=== PATIENT | female | born 2000 | race Caucasian/White ===

== ENCOUNTER → 2022-09-07 10:27 | Outpatient (CLI) | payer OTHER, SELFPAY ==
--- NOTE | 2022-09-06 10:33 | W.CARDEVENT ---
Date of service: 09/06/22 Time of Service: 10:33 Cardiac Event Recorder Referring Provider:: Marion Valedz Indications:: Syncope Cardiac Event Note: This is a 30-day secured entrance monitor, reportedly ordered for syncope. Rhythm throughout was sinus with an average heart rate of 75. Minimum was 53, maximum 144 There were no significant supraventricular or ventricular dysrhythmias There was no atrial fibrillation, no high-grade AV block, no pauses greater than 3 seconds Patient symptoms of lightheadedness corresponded to sinus rhythm rate approximately 100
--- NOTE | 2022-09-07 | DI.US_ITS ---
APPROVED REPORT EXAM: Comprehensive 2D, Doppler, and color-flow Echocardiogram Patient Location: Out-Patient Licensed Insurance Sales Agent: Tarsha Driscoll RDCS (AE) Indications: Syncopal episodes and dizziness Other Information Study Quality: Adequate. Technically limited study due to scan done with patient fully clothed. Conclusion Normal left ventricular wall thickness and chamber size. Estimated ejection fraction is 60%. Wall m otion is normal Normal right ventricular size and systolic function Both atria are normal in size There is no structural or hemodynamically significant valvular disease Estimated right ventricular systolic pressure is normal at 19 mmHg Wall motion Left Ventricle The left ventricle is normal size. The left ventricular systolic function is normal. The left ventric ular ejection fraction is within the normal range. There is normal left ventricular wall thickness. T here is normal LV segmental wall motion. There is no ventricular septal defect visualized. LVEF is 60 %. Right Ventricle The right ventricle is normal size. The right ventricular systolic function is normal. The RVSP is 18 .8mmHg. Atria The left atrium size is normal. The right atrium size is normal. The interatrial septum is intact wit h no evidence for an atrial septal defect. Aortic Valve The aortic valve is normal in structure. Aortic valve is trileaflet. There is no aortic valvular sten osis. No aortic regurgitation is present. Mitral Valve The mitral valve is normal in structure. No evidence of mitral valve stenosis. Trace mitral regurgita tion. Tricuspid Valve The tricuspid valve is normal in structure. There is no tricuspid valve stenosis. Trace tricuspid reg urgitation. Pulmonic Valve Pulmonic valve is not well visualized. There is no pulmonic valvular stenosis. There is no pulmonic v alvular regurgitation. Great Vessels The aortic root is normal in size. Ascending aorta is not well visualized. Aortic arch is normal in c aliber. IVC is normal in size and collapses >50% with inspiration. Pericardium There is no pericardial effusion. 2D Dimensions IVSD d PLAX 0.69 cm F: 0.6-1.0 LV Vol A2C d MOD 95.7 mL LVPW d PLAX 0.66 cm F: 0.6 - 1.0 LV Vol A4C d MOD 71.9 mL LVID d PLAX 4.22 cm F: 3.8 - 5.2 LA vol/ BSA A2C s A-L 18.7 mL/m2 LVDs 2.65 cm F: 2.2 - 3.5 LA vol/ BSA A4C s A-L 11.3 mL/m2 Ao Root d 2.19 cm F: 2.7 - 3.3 LA Vol/ BSA Biplane s A-L 15.0 mL/m2 RA Area A4C 8.13 cm2 LA Area A4C s MOD 9.05 cm2 RA Vol/ BSA A4C s A-L 9.5 mL/m2 LA Area A2C s MOD 11.98 cm2 LV EF Teichholz 66.4 % LV EF A4C MOD 60.2 % LVEF (Brooks's) 59.02 % F: 54 - 74 LV EF A2C MOD 60.1 % LV Volume 68.93 mL F: 46 - 106 LV EF Biplane MOD 59.0 % LV Volume Index 43.08 mL/m2 F: 29 - 61 SV 50.10 mL LV Vol Biplane MOD 84.9 mL SV Index 31.27 mL/m2 FS 36.25 % M-Mode TAPSE 3.02 cm (M/F) >1.7 LV Diastology MV E' medial 0.145 (>0.07 m/s) E/A Ratio 1.7 LV E/e MED 6.35 (<14) MV E Vmax 0.93 (0.4-1.3 m/s) MV E' lateral 0.197 (>0.1 m/s) MV A Vmax 0.55 (0.4-1.3 m/s) LV E/e LAT 4.70 (<14) MV E/A Ratio 1.67 MV E/E' medial 6.38 MV E/E' lateral 4.71 Aortic Valve LVOT Area 2.65 cm2 AoV Area Vmax 2.36 cm2 LVOT Vmax 1.15 m/s AoV Area/ BSA (Vmax) 1.47 cm2/m2 LVOT Mean Matty. 0.74 m/s CORRIE Mean Matty. 2.19 cm2 LVOT Peak Grad 5.3 mmHg CORRIE Mean Matty. Index 1.37 cm2/m2 LVOT Mean Grad 2.6 mmHg LVOT VTI 0.257 m LVOT Diam s 1.80 cm AoV Vmax 1.29 m/s Velocity Ratio 0.89 AoV Mean Matty. 0.90 m/s AoV Peak Grad 6.7 mmHg LVOT SV 68.12 mL AoV Mean Grad 3.6 mmHg AoV VTI 0.277 m AoV Area VTI 2.46 cm2 AoV Area/ BSA (VTI) 1.54 cm/m2 Mitral Valve MV DT 191 (160-240 msec) MV PHT 55 msec MV Area PHT 3.98 cm2 Pulmonary Valve PV Vmax 1.01 (0.5-1.5 m/s) RVOT Peak Gr. 2.11 mmHg PV Peak Grad 4.1 mmHg RVOT Mean Gr. 1.00 mmHg PV Mean Grad 2.1 mmHg RVOT VTI 0.159 m PV VTI 0.220 m RVOT Vmax 0.73 m/s Tricuspid Valve TR Peak Grad 15.7 mmHg TR Vmax 1.98 m/s RA Pressure 3.00 mmHg RVSP (TR) 18.8 mmHg
== END ==
PROVIDERS: Visit Provider Nurse Practitioner Family
DX: R55 Syncope and collapse (principal)
CPT/HCPCS: 93272; 93306

== ENCOUNTER → 2023-04-09 12:50 | Outpatient (BNVA) | payer OTHER, SELFPAY | PROVIDERS: PCP Nurse Practitioner Family; Referring Provider Nurse Practitioner Family; Visit Provider Psychiatry & Neurology Neurology | DX: R40.4 Transient alteration of awareness (principal); Z86.16 Personal history of COVID-19; Z82.49 Family history of ischemic heart disease and other diseases of the circulatory system; G47.00 Insomnia, unspecified | CPT/HCPCS: 99205 ==

== ENCOUNTER 2023-04-15 03:22 | Outpatient (CLI) | payer OTHER, SELFPAY ==
--- NOTE | 2023-04-25 23:52 | PDOC.EEG ---
Neurology EEG EEG: [facility] Department of Neurology LONG-TERM AMBULATORY EEG REPORT Date of Recordin04/15/23 at 13:36:44 to 04/17/23 at 17:08:45 Interpreting Physician: Dr. Alondra Gomez PCP/Referring Provider: Marion Valdez NP Reason for study: Ms. Amaya has increasing spells of presyncope/syncope. Current Medications: Home Medications Medication Instructions Recorded Confirmed Type Unknown [No Known Home Meds] 04/09/23 04/09/23 History METHODS: An 18-channel digitized electroencephalogram was recorded in the ambulatory setting with video. The 10/20 international system of electrode placement was used and bipolar and referential electrode montages were recorded. In addition to EEG the patient was monitored for EKG and by video. Activation procedures of photic stimulation and hyperventilation were performed if applicable. The duration of the recording was ~51 hours. DESCRIPTION OF EEG: Waking background activity: During maximal wakefulness a 10.5-Hz posterior background rhythm was present which was well-modulated, symmetrical, reactive to eye opening, and of moderate voltage. Faster frequencies were present in the bilateral anterior head regions. There was a normal anterior-posterior voltage gradient. Drowsy and sleeping background activity: During drowsiness, there was attenuation of the posterior dominant background rhythm and vertex waves. Normal stage II and III sleep was present with symmetrical sleep spindles, K-complexes, and vertex waves with slowing of the background rhythm to delta/theta frequencies. REM sleep manifested by rapid lateral eye movements and faster background rhythms was recorded. Arousal was unremarkable. Interictal abnormalities: none. Ictal findings: Event #1 on 04/15/23 at ~2230 -Clinical manifestations: As she was falling asleep, she noted upper body twitching. -EEG findings: No abnormal or epileptiform findings. Event #2 on 04/16/23 at ~0713 -Clinical manifestations: While driving her car, she noted head/neck twitching. -EEG findings: No abnormal or epileptiform findings. Event #3 on 04/16/23 at ~0932 -Clinical manifestations: While working, she had a sharp headache in her L eye x 18min. -EEG findings: No abnormal or epileptiform findings. Event #4 on 04/16/23 at ~1430 -Clinical manifestations: While working, she had a mild frontal headache x35min. -EEG findings: No abnormal or epileptiform findings. Event #5 on 04/17/23 at ~0855 -Clinical manifestations: While working, she had some mild dizziness and nausea as well as weakness in her legs. x25min. -EEG findings: No abnormal or epileptiform findings. Event #6 on 04/17/23 at ~0905 -Clinical manifestations: While working, she had lateral eye shaking x1sec. -EEG findings: No abnormal or epileptiform findings. Event #7 on 04/17/23 at ~1240 -Clinical manifestations: While working, she had dizziness and nausea x 25min. -EEG findings: No abnormal or epileptiform findings. Activating Procedures: Photic stimulation was performed which produced a symmetrical posterior driving response at various flash frequencies. Hyperventilation was performed with moderate effort and produced no physiological slowing of the background. EKG: EKG revealed normal sinus rhythm. INTERPRETATION: This long-term EEG is normal during the awake and sleep states as well as during the activation procedures. Numerous events captured as above without associated EEG abnormalities. PRIOR EEG: none CLINICAL CORRELATION: No focal regions of cerebral dysfunction or epileptiform activity was present. The above events captured are not consistent with seizure. Epilepsy remains a clinical diagnosis and a normal EEG does not rule out epilepsy. Clinical correlation is advised. Alondra Gomez MD
== END 2023-04-15 03:23 | disposition home or self-care (01) ==
LOC: RT 03:22
PROVIDERS: PCP Nurse Practitioner Family; Visit Provider Psychiatry & Neurology Neurology
DX: R55 Syncope and collapse (principal)
CPT/HCPCS: 95714; 95722

== ENCOUNTER → 2023-07-03 12:17 | Outpatient (BNVA) | payer OTHER, SELFPAY | PROVIDERS: PCP Nurse Practitioner Family; Referring Provider Nurse Practitioner Family; Visit Provider Psychiatry & Neurology Neurology | DX: R40.4 Transient alteration of awareness (principal); G43.009 Migraine without aura, not intractable, without status migrainosus | CPT/HCPCS: 99214 ==